=== PATIENT | male | born 1960 | race Two or more races ===

== ENCOUNTER → 2024-08-12 | Outpatient (CLI) | payer MEDICARE, SELFPAY ==
[2024-08-12 11:31] LABS: Quantiferon-TB* See Sep Rpt
[2024-08-12 11:46] LABS: Basophils # (Auto) 0.1 Thou/mm3 (0.0-0.2); Basophils % (Auto) 2 % (0-2.5); Eosinophils # (Auto) 0.2 Thou/mm3 (0.0-0.5); Eosinophils % (Auto) 3 % (0-10); Hematocrit 42.9 % (41.0-53.0); Hemoglobin 14.4 g/dL (13.5-16.0); Immature Granulocytes % (Auto) 0 % (0-0); Immature Granulocytes Auto 0.02 Thou/mm3 (0.00-0.00); Lymphocytes # (Auto) 1.9 Thou/mm3 (1.0-4.8); Lymphocytes % (Auto) 28 % (10-50); Mean Corpuscular HGB Conc 33.6 g/dl (31.0-37.0); Mean Corpuscular Hemoglobin 31.9 pg (25.0-35.0); Mean Corpuscular Volume 95 fL (80-100); Monocytes # (Auto) 0.5 Thou/mm3 (0.0-0.8); Monocytes % (Auto) 7 % (0-12); Neutrophils # (Auto) 4.1 Thou/mm3 (1.8-7.7); Neutrophils % (Auto) 60 % (37-80); Nucleated Red Blood Cell % 0 /100 WBC (0); Platelet Count 226 Thou/mm3 (140-440); RDW Standard Deviation 45.6 fL (35.1-43.9); Red Blood Count 4.52 Miln/mm3 (4.50-5.90); White Blood Count 6.9 Thou/mm3 (3.8-10.6)
[2024-08-12 11:56] LABS: Glucose Estimated Average 88 mg/dL (80-131); Hemoglobin A1C 4.7 % Hgb (4.8-6.0)
[2024-08-12 12:02] LABS: Sed Rate (ESR) 19 mm/hr (0-20)
[2024-08-12 12:06] LABS: Prostate Specific Antigen 3.02 ng/mL (0-4.00)
[2024-08-12 12:09] LABS: Collection Type, Urine Clean Catch; RBC,Urine 0 /hpf (0-3); Squamous Epithelial Cell,Urine 0 /hpf (0-5)
[2024-08-12 12:10] LABS: Vitamin B12 490 pg/mL (211-911); Vitamin D 25 Hydroxy Total 23.1 ng/mL (7.3-40.2)
[2024-08-12 12:17] LABS: Alanine Aminotransferase 11 U/L (10-49); Albumin, Serum 4.2 gm/dL (3.4-4.8); Albumin/Globulin Ratio 1.6 (1.2-2.2); Alkaline Phosphatase 51 U/L (46-116); Anion Gap 6 (7-16); Aspartate Amino Transferase 21 U/L (0-34); BUN/Creatinine Ratio 14 Ratio (12-20); Bilirubin,Total 0.7 mg/dL (0.3-1.2); Blood Urea Nitrogen 10 mg/dL (9-23); Carbon Dioxide 26.9 mMol/L (20.0-31.0); Cardiac Risk Estimate 2.5 RATIO (4.0-6.7); Chloride 108 mMol/L (98-107); Cholesterol 173 mg/dL (132-200); Creatinine (Component) 0.7 mg/dL (0.6-1.3); Globulin 2.7 gm/dL (2.3-3.5); Glucose 91 mg/dL (74-106); HDL Cholesterol 70 mg/dL (40-60); LDL Cholesterol,Calculated 92 mg/dL (0-130); Osmolality,Calculated 280 (275-295); Potassium 4.6 mMol/L (3.4-5.1); Sodium 141 mMol/L (136-145); Thyroid Stimulating Hormone 0.99 uIU/mL (0.55-4.78); Total Protein 6.9 gm/dL (5.7-8.2); Triglycerides 53 mg/dL (30-150); Uric Acid 3.7 mg/dL (3.7-9.2); eGFR > 60 See Note
[2024-08-12 12:27] LABS: Bilirubin,Urine Negative (Negative); Blood,Urine Trace (Negative); Clarity,Urine Clear (Clear/Hazy); Color,Urine Lt-Yellow (Lt Yel-Yel); Glucose, Urine Negative (Negative); Ketones,Urine Negative (Negative); Leukocyte Esterase,Urine Negative (Negative); Nitrite,Urine Negative (Negative); Protein,Urine Trace (Neg - Trace); Specific Gravity,Urine 1.017 (1.001-1.035); Urobilinogen,Urine Negative mg/dL (0.0-1.0); WBC,Urine < 1 /hpf (0-5)
[2024-08-12 13:14] LABS: Cocci Serology, IgM Negative (Negative)
[2024-08-13 13:20] LABS: Cocci Serology, IgG Negative (Negative)
== END | disposition home or self-care (01) ==
PROVIDERS: PCP Internal Medicine; Referring Provider Internal Medicine; Visit Provider Internal Medicine
DX: Z00.00 Encounter for general adult medical examination without abnormal findings (principal); M05.79 Rheumatoid arthritis with rheumatoid factor of multiple sites without organ or systems involvement; Z79.60 Long term (current) use of unspecified immunomodulators and immunosuppressants
CPT/HCPCS: 36415; 80053; 80061; 81001; 82306; 82607; 83036; 84153; 84443; 84550; 85025; 85652; 86331; 86480; 86635

== ENCOUNTER 2025-02-22 05:08 | Emergency (ER) | payer MEDICARE, SELFPAY ==
[2025-02-22 05:09] VITALS: BMI 26.6
--- NOTE | 2025-02-22 05:31 | XR_ITS ---
Examination: CT abdomen and pelvis without contrast. Coronal 3-D reconstructions. Sagittal 2-D reconstructions. Date and time of exam:February 22, 2025, 0623 hours, comparison February 08, 2024 INDICATIONS: Nausea vomiting abdominal pain beginning this morning CTDI: vol (mGy): 7.85 DLP: (mGycm): 432 Technique: Axial images of the abdomen have been obtained, 3 mm slice thickness Intravenous contrast material has not been administered. Low dose protocols were performed. One or more of the following dose reduction techniques were used; automated exposure control, adjustment of the mA and/or KV according to patient size, use of iterative reconstruction technique. Findings: No focal liver or splenic lesion No pancreatic mass Gallstones Mild perinephric stranding No renal or ureteral calculi, no hydronephrosis Aorta normal size Normal appendix No bowel obstruction Colonic diverticulosis Suspicious for minimal inflammatory change about the sigmoid diverticula Contracted urinary bladder. Normal seminal vesicles Transverse posterior dimension 4.9 cm Moderate degenerative disc disease L4-L5. IMPRESSION: Mild perinephric stranding, clinical correlation advised No renal or ureteral calculi, no hydronephrosis Normal appendix Suspicious for minimal sigmoid diverticulitis, the appearance should be clinically correlated
--- NOTE | 2025-02-22 05:31 | PD.EDRME ---
Rapid Medical Screening Exam RME Arrival date/time: 02/22/25 05:08 This is a case of 64-year-old male who came in in the emergency room due to left-sided abdominal pain with nausea vomiting persistence of the symptoms this patient decided to sought consult here in the emergency room Chief Complaint: Abdominal Pain
[2025-02-22 05:33] VITALS: BP 168/97; PULSE 63; RESP 18; TEMP 36.9; O2SAT 98
[2025-02-22] MEDS: ONDANSETRON INJ 2 MG/ML INJ 2 ML 4 MG IM (06:01)
[2025-02-22] MEDS: MORPHINE SULF INJ 10 MG/ML VIAL 5 MG IM (06:01)
[2025-02-22 06:10] LABS: Collection Type, Urine Clean Catch; Squamous Epithelial Cell,Urine 0 /hpf (0-5)
[2025-02-22 06:32] VITALS: BP 197/97; PULSE 55; RESP 20; TEMP 36.9; O2SAT 100
[2025-02-22 06:35] LABS: Bilirubin,Urine Negative (Negative); Blood,Urine 1+ (Negative); Clarity,Urine Clear (Clear/Hazy); Color,Urine Lt-Yellow (Lt Yel-Yel); Glucose, Urine Negative (Negative); Ketones,Urine 4+ (Negative); Leukocyte Esterase,Urine Negative (Negative); Nitrite,Urine Negative (Negative); PH,Urine 6.0 (5.0-7.0); Protein,Urine Trace (Neg - Trace); RBC,Urine 7 /hpf (0-3); Specific Gravity,Urine 1.023 (1.001-1.035); Urobilinogen,Urine Negative mg/dL (0.0-1.0); WBC,Urine 3 /hpf (0-5)
[2025-02-22 06:55] VITALS: BP 149/95; PULSE 63; RESP 19; TEMP 37; O2SAT 95
[2025-02-22 07:06] LABS: Basophils # (Auto) 0.1 Thou/mm3 (0.0-0.2); Basophils % (Auto) 1 % (0-2.5); Eosinophils # (Auto) 0.5 Thou/mm3 (0.0-0.5); Eosinophils % (Auto) 4 % (0-10); Hematocrit 43.9 % (41.0-53.0); Hemoglobin 14.9 g/dL (13.5-16.0); Immature Granulocytes Auto 0.04 Thou/mm3 (0.00-0.00); Lymphocytes # (Auto) 0.4 Thou/mm3 (1.0-4.8); Lymphocytes % (Auto) 3 % (10-50); Mean Corpuscular HGB Conc 33.9 g/dl (31.0-37.0); Mean Corpuscular Hemoglobin 32.6 pg (25.0-35.0); Mean Corpuscular Volume 96 fL (80-100); Monocytes # (Auto) 0.5 Thou/mm3 (0.0-0.8); Monocytes % (Auto) 4 % (0-12); Neutrophils # (Auto) 10.7 Thou/mm3 (1.8-7.7); Neutrophils % (Auto) 88 % (37-80); Nucleated Red Blood Cell # 0.00 Thou/mm3 (0.00-0.00); Nucleated Red Blood Cell % 0 /100 WBC (0); Platelet Count 231 Thou/mm3 (140-440); RDW Standard Deviation 45.3 fL (35.1-43.9); Red Blood Count 4.57 Miln/mm3 (4.50-5.90); White Blood Count 12.2 Thou/mm3 (3.8-10.6)
[2025-02-22 07:23] LABS: Alanine Aminotransferase 13 U/L (10-49); Albumin, Serum 4.7 gm/dL (3.4-4.8); Albumin/Globulin Ratio 1.3 (1.2-2.2); Alkaline Phosphatase 61 U/L (46-116); Anion Gap 12 (7-16); Aspartate Amino Transferase 29 U/L (0-34); BUN/Creatinine Ratio 15 Ratio (12-20); Bilirubin,Total 0.9 mg/dL (0.3-1.2); Blood Urea Nitrogen 12 mg/dL (9-23); Calcium 9.9 mg/dL (8.3-10.6); Calcium (Corrected) 9.9 mg/dL (8.5-10.1); Carbon Dioxide 21.2 mMol/L (20.0-31.0); Chloride 111 mMol/L (98-107); Creatinine (Component) 0.8 mg/dL (0.6-1.3); Estimated Creatinine Clearance 83.1 mL/min (>60); Globulin 3.6 gm/dL (2.3-3.5); Glucose 147 mg/dL (74-106); Osmolality,Calculated 289 (275-295); Potassium 4.2 mMol/L (3.4-5.1); Sodium 144 mMol/L (136-145); Total Protein 8.3 gm/dL (5.7-8.2); eGFR > 60 See Note
[2025-02-22 07:34] LABS: Lipase 21 U/L (12-53)
[2025-02-22 08:13] VITALS: BP 128/80; PULSE 70; RESP 18; TEMP 37; O2SAT 96
--- NOTE | 2025-02-22 08:17 | PD.EDABDPN ---
ED Abdominal Pain RME/HPI General Chief Complaint: Abdominal Pain Stated complaint: N/V ABD PAIN Time seen by provider: 02/22/25 05:32 Arrival date/time: 02/22/25 05:08 Source: patient Limitations: no limitations RME / HPI RME / HPI narrative: 02/22/25 05:08 This is a case of 64-year-old male who came in in the emergency room due to left-sided abdominal pain with nausea vomiting persistence of the symptoms this patient decided to sought consult here in the emergency room DR. AMY CARRANZA ED EVALUATION 64 year old male with history of rheumatoid arthritis, hypertension, diverticulitis presents to the ED for evaluation of abdominal pain that is located most to the left lower region that began yesterday. Described as nagging aching in sensation, rated as moderate. Accompanied by blood in stool also beginning yesterday. Noted the amount of blood in stool to be mild, denies any gross blood. Patient reports similar presentation several years ago and during that time had a colonoscopy showing diverticulitis. No other associated symptoms reported. Denies fevers, chills, chest pain, cough, shortness of breath, or urinary symptoms. No repeat colonoscopies performed since. Related Data Home Medications ?Medication ?Instructions ?Recorded ?Confirmed celecoxib 200 mg capsule 200 mg PO BID 03/21/23 03/21/23 hydroxychloroquine 200 mg tablet 400 mg PO QDAY 03/21/23 03/21/23 (Plaquenil) Previous Rx's ?Medication ?Instructions ?Recorded aspirin 81 mg tablet,delayed 81 mg PO DAILY #1 tab 03/22/23 release meclizine 25 mg tablet 25 mg PO Q6HR PRN Dizziness #30 03/22/23 tabs sertraline 25 mg tablet 50 mg (2 x 25 mg) PO HS #30 tabs 03/22/23 ciprofloxacin HCl 500 mg tablet 500 mg PO BID #14 tabs 02/08/24 (Cipro) dicyclomine 20 mg tablet 20 mg PO BID #20 tabs 02/08/24 ondansetron 4 mg disintegrating 4 mg PO Q8H #14 tabs 02/08/24 tablet amoxicillin 875 mg-potassium 1 tab PO Q12H #10 tabs 02/22/25 clavulanate 125 mg tablet Allergies Allergy/AdvReac Type Severity Reaction Status Date / Time No Known Allergies Allergy Verified 02/22/25 05:11 Review of Systems Review of Systems Systems Reviewed: All systems reviewed, normal except as documented Past Medical History Past Medical History CARDIAC: Negative Congestive Heart Failure RESPIRATORY: Negative Chronic Obstructive Pulmonary Disease (COPD) GASTROINTESTINAL: Positive Diverticulitis GENITOURINARY: Negative Renal Disease MUSCULOSKELETAL: Positive Arthritis ENDOCRINE: Negative Diabetes Mellitus Type 1 or Diabetes Mellitus Type 2 Surgical History SURGICAL: Positive Knee Sx (LEFT KNEE) Social History SMOKING STATUS: Never smoker ED Exam General Limitations: Present no limitations General appearance: Present alert and in no apparent distress Head Head exam: Present atraumatic, normocephalic and normal inspection Eye Eye exam: Present normal appearance and EOMI ENT ENT exam: Present normal exam, normal oropharynx and mucous membranes moist Neck Neck exam: Present normal inspection, full ROM and trachea midline Chest Chest inspection: Present normal inspection and symmetric chest wall rise Respiratory Respiratory exam: Present normal lung sounds bilaterally Cardiovascular Cardiovascular exam: Present regular rate, normal rhythm and normal heart sounds Abdominal Exam Abdominal exam: Present soft, tenderness (to the left lower quadrant ) and normal bowel sounds Extremities Exam Extremities exam: Present normal inspection and full ROM Back Exam Back exam: Present normal inspection and full ROM Neurological Exam Neurological exam: Present alert, oriented X3 and CN II-XII intact Psychiatric Psychiatric exam: Present normal affect and normal mood Skin Skin exam: Present warm, dry, intact and normal color Course Quality Measures none Orders Category Date Time Status CT abdomen pelvis wo con Stat Exams 02/22/25 05:31 Completed CBC Stat Lab 02/22/25 06:42 Completed Comprehensive Metabolic Panel Stat Lab 02/22/25 06:42 Completed Lipase Stat Lab 02/22/25 06:42 Completed Urinalysis Stat Lab 02/22/25 06:01 Completed Ciprofloxacin HCl [Ciprofloxacin] Med 02/22/25 08:26 Discontinued 500 mg PO X1 ONE Morphine Inj Med 02/22/25 05:40 Discontinued 5 mg IM X1 ONE Ondansetron Inj [Zofran Inj] Med 02/22/25 05:40 Discontinued 4 mg IM X1 ONE cefTRIAXone/D5w 1gm IV premix [Rocephin/D5w 1gm IV Med 02/22/25 08:29 Active premix] 1 gm in 50 ml IV STAT metroNIDAZOLE/NS 500 MG IVPB [Flagyl 500 mg IV] Med 02/22/25 08:25 Active 500 mg in 100 ml IV STAT Vital Signs Vital signs: Vital Signs Temperature 98.4 F 02/22/25 05:33 Pulse Rate 63 02/22/25 05:33 Respiratory Rate 18 02/22/25 05:33 Blood Pressure 168/97 H 02/22/25 05:33 Pulse Oximetry (%) 98 02/22/25 05:33 Oxygen Delivery Method Room Air 02/22/25 05:33 Pulse ox is 98% on room air which is adequate. Abdominal Pain MDM MDM Narrative MDM Narrative:: Patient is a 64-year-old male is in the emergency room and concerns for abdominal pain. Vital signs and exam as listed. Concern for diverticulitis, urinary tract infection, pancreatitis. Among others. Prior provider evaluated patient and ordered labs and CT without contrast. Labs with evidence of leukocytosis 12.2, left shift of 88%, hemoglobin 14.9. No significant electrolyte abnormality, chloride 111, creatinine normal, no transaminitis. Urinalysis with 7 RBCs 3 white blood cells no bacteria leuk esterase negative nitrate negative. CT abdomen pelvis with mild perinephric fat stranding, and findings suspicious for early sigmoid diverticulitis. Patient denies dysuria or hematuria. Given history and exam we will treat for diverticulitis. Patient is hemodynamically stable, not in distress will discharge to home with close return precautions and primary care doctor. Symptoms improved. Will discharge symptoms improved. 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 for his episodes of bright red blood per rectum Patient data External records reviewed:: [facility] previous records (I reviewed ED visit on 02/08/2024 ) Clinical information provided by:: patient Social determinants that could affect healthcare access:: none Patient has the following chronic illnesses:: rheumatoid arthritis, hypertension, diverticulitis How is presenting disease/condition affected by chronic disease/condition?: exacerbated by Evaluation data The following diagnostics were reviewed and interpreted by me:: lab results and radiology exam(s) Lab and/or radiology exams considered but not ordered:: None Interpretation Summary: Ordering Physician: Gema Boucher Date of Service: 02/22/25 Procedure(s): CT abdomen pelvis wo con Accession Number(s): [id number] cc: Juan Manuel Maki MD; Gema Boucher; Julito Olmstead MD~ Examination: CT abdomen and pelvis without contrast. Coronal 3-D reconstructions. Sagittal 2-D reconstructions. Date and time of exam:February 22, 2025, 0623 hours, comparison February 08, 2024 INDICATIONS: Nausea vomiting abdominal pain beginning this morning CTDI: vol (mGy): 7.85 DLP: (mGycm): 432 Technique: Axial images of the abdomen have been obtained, 3 mm slice thickness Intravenous contrast material has not been administered. Low dose protocols were performed. One or more of the following dose reduction techniques were used; automated exposure control, adjustment of the mA and/or KV according to patient size, use of iterative reconstruction technique. Findings: No focal liver or splenic lesion No pancreatic mass Gallstones Mild perinephric stranding No renal or ureteral calculi, no hydronephrosis Aorta normal size Normal appendix No bowel obstruction Colonic diverticulosis Suspicious for minimal inflammatory change about the sigmoid diverticula Contracted urinary bladder. Normal seminal vesicles Transverse posterior dimension 4.9 cm Moderate degenerative disc disease L4-L5. IMPRESSION: Mild perinephric stranding, clinical correlation advised No renal or ureteral calculi, no hydronephrosis Normal appendix Suspicious for minimal sigmoid diverticulitis, the appearance should be clinically correlated Dictated By: Juan Manuel Maki MD Signed By: <Electronically signed by Juan Manuel Maki MD in OV> 02/22/25 0747 Medications / Prescriptions Medications or Prescriptions considered but not ordered:: None Medication administrations:: Medication Administration History Metronidazole (Flagyl 500 Mg Iv) 500 mg in 100 mls @ 200 mls/hr IV STAT STA Stop: 02/22/25 08:54 Ceftriaxone Sodium/Dextrose (Rocephin/D5w 1gm Iv Premix) 1 gm in 50 mls @ 100 mls/hr IV STAT STA Stop: 02/22/25 08:58 Discontinued Medications Ciprofloxacin (Ciprofloxacin Hcl 250 Mg Tablet) 500 mg PO X1 ONE Stop: 02/22/25 08:27 Morphine Sulfate (Morphine Sulf Inj 10 Mg/Ml Vial) 5 mg IM X1 ONE Stop: 02/22/25 05:41 Last Admin: 02/22/25 06:01 Dose: 5 mg Documented By: NEFTALI Ondansetron HCl (Ondansetron Inj 2 Mg/Ml Inj 2 Ml) 4 mg IM X1 ONE; Protocol Stop: 02/22/25 05:41 Last Admin: 02/22/25 06:01 Dose: 4 mg Documented By: NEFTALI Comments: MEDICATION ORDER See above Consultations Consultation(s) initiated? (list below): No Diagnosis Differential diagnosis abdominal pain: abdominal pain, diverticulitis and other (hemorrhoids, GI bleed ) Most likely diagnosis given after review of the tests above:: Diverticulitis diverticulitis Admission Indicated Admission indicated?: not indicated Admission Request Was there a request for admission?: No Disposition Plan Disposition Plan: Discharge Discharge Attestation Discharge Attestation: The patient and all family members were given an opportunity to ask questions and understood the discharge instructions. Discharge instructions specifically effects, indications for sooner follow up or return to the emergency department, and the expected course of current diagnosis. Patient condition: Stable Discharge Plan Plan Patient Disposition: HOME (Self Care) Prescriptions/Referrals Prescriptions/Med Rec: New amoxicillin-pot clavulanate 875-125 mg tablet 1 tab PO Q12H Qty: 10 0RF No Action celecoxib 200 mg Capsule 200 mg PO BID Rx Instructions: Take 1 200 mg capsule by mouth twice a day for 90 days hydroxychloroquine [Plaquenil] 200 mg Tablet 400 mg PO QDAY Rx Instructions: Take 2, 200 mg tabs by mouth every day aspirin 81 mg Tablet,Delayed Release (Dr/Ec) 81 mg PO DAILY Qty: 1 0RF meclizine 25 mg Tablet 25 mg PO Q6HR PRN (Reason: Dizziness) Qty: 30 0RF sertraline 25 mg Tablet 50 mg PO HS Qty: 30 0RF ciprofloxacin HCl [Cipro] 500 mg tablet 500 mg PO BID Qty: 14 0RF dicyclomine 20 mg tablet 20 mg PO BID Qty: 20 0RF ondansetron 4 mg tablet,disintegrating 4 mg PO Q8H Qty: 14 0RF Referrals: Julito Olmstead MD [Primary Care Provider] - In 1 week Problem List Clinical Impression: Diverticulitis Impression comment: Please follow-up with your primary care doctor within the next 1 to 2 days. Please take antibiotics as prescribed. We have prescribed you Augmentin every 12 x 5 days given that you are also taking hydroxychloroquine and so we chose these medications based on avoiding QT prolonging medication. I also recommend that you see a journeyman carpenter for further evaluation of blood in your stool. Return to emergency department immediately if you have worsening symptoms or symptom concern Patient/Caregiver Discharge Instructions Print Language: Estonian Stand Alone Forms: Ingrid Award Info., Patient Portal Info Letter
[2025-02-22] MEDS: metroNIDAZOLE/NS 500 MG IVPB 500 MG/100 ML BAG 200 MG IV (08:34)
[2025-02-22] MEDS: cefTRIAXone/D5w 1gm IV premix 1 GM/50 ML BAG IV (09:10)
[2025-02-22 10:18] VITALS: BP 126/89; PULSE 83; RESP 19; TEMP 37.1; O2SAT 98
== END 2025-02-22 10:19 | disposition home or self-care (01) ==
PROVIDERS: Nurse Practitioner Family; Emergency Provider Emergency Medicine; PCP Internal Medicine
DX: K57.33 Diverticulitis of large intestine without perforation or abscess with bleeding (principal)
CPT/HCPCS: 36415; 74176; 80053; 81001; 83690; 85025; 96365; 96372; 99284; J0696; J2270; J2405; J3490; J1836

== ENCOUNTER 2025-03-25 15:40 | Emergency (ER) | payer MEDICARE, SELFPAY ==
[2025-03-25 16:11] VITALS: BP 150/97; PULSE 69; RESP 17; TEMP 37.3; O2SAT 98; BMI 25.0
--- NOTE | 2025-03-25 16:17 | XR_ITS ---
Examination: Ribs, right, with PA chest, 5 views Technique: Chest PA, RIBS AP, RPO, LPO, AP coned lower ribs 5 views Exam date and time: March 25, 2025 1620 hrs. Indications: Patient fell today with injury to the right chest, right rib pain Findings: Normal heart size No pneumothorax Old appearing deformity right clavicle, clinical correlation advised Acute appearing nondisplaced fractures right fourth fifth and sixth ribs anteriorly Impression: No pneumothorax pulmonary contusion or hemothorax Acute appearing fractures right fourth, fifth, sixth ribs anteriorly
[2025-03-25] MEDS: HYDROcodone/APAP 5/325 TABLET 1 TAB PO (16:32)
--- NOTE | 2025-03-25 17:48 | PD.EDRME ---
Rapid Medical Screening Exam [facility] Arrival date/time: 03/25/25 15:40 65-year-old male with no known medical history presents to the emergency room with a chief complaint of tenderness and pain to his right rib cage and difficulty breathing x 1 day. Patient had a ground-level fall last Friday. I have greeted and performed a focused initial assessment of this patient. A comprehensive ED assessment and evaluation of the patient, analysis of all test results, and completion of the medical decision making process will be conducted by additional ED providers. Chief Complaint: Fall Time Seen by Provider: 03/25/25 15:53 Vital signs: Vital Signs Temperature 99.2 F 03/25/25 16:11 Pulse Rate 69 03/25/25 16:11 Respiratory Rate 17 03/25/25 16:11 Blood Pressure 150/97 H 03/25/25 16:11 Pulse Oximetry (%) 98 03/25/25 16:11 Oxygen Delivery Method Room Air 03/25/25 16:11 Vital signs reviewed by provider: Yes
--- NOTE | 2025-03-25 19:08 | PD.EDFALL ---
ED Fall Injury RME/HPI General Chief Complaint: Fall Stated Complaint: Fall, last Friday, rib pain, SOB Time Seen by Provider: 03/25/25 15:53 Arrival date/time: 03/25/25 15:40 RME / HPI RME / HPI Narrative: 03/25/25 15:40 65-year-old male with no known medical history presents to the emergency room with a chief complaint of tenderness and pain to his right rib cage and difficulty breathing x 1 day. Patient had a ground-level fall last Friday. I have greeted and performed a focused initial assessment of this patient. A comprehensive ED assessment and evaluation of the patient, analysis of all test results, and completion of the medical decision making process will be conducted by additional ED providers. Dr. Short?s Main ED Evaluation: 65yo male who suffered a ground-level fall 1 week [employer] striking his right posterior thorax with persistent posterior lateral chest pain increasing with deep inspiration. No reported fever, chills, or SOB. Pain worsens with flexion and rotation of the torso. PMH includes RA (on immunomodulators). PSH unremarkable. Social history includes occasional alcohol use, no tobacco or illicit drug use. NKA. Related Data Home Medications ?Medication ?Instructions ?Recorded ?Confirmed celecoxib 200 mg capsule 200 mg PO BID 03/21/23 03/21/23 hydroxychloroquine 200 mg tablet 400 mg PO QDAY 03/21/23 03/21/23 (Plaquenil) Previous Rx's ?Medication ?Instructions ?Recorded aspirin 81 mg tablet,delayed 81 mg PO DAILY #1 tab 03/22/23 release meclizine 25 mg tablet 25 mg PO Q6HR PRN Dizziness #30 03/22/23 tabs sertraline 25 mg tablet 50 mg (2 x 25 mg) PO HS #30 tabs 03/22/23 ciprofloxacin HCl 500 mg tablet 500 mg PO BID #14 tabs 02/08/24 (Cipro) dicyclomine 20 mg tablet 20 mg PO BID #20 tabs 02/08/24 ondansetron 4 mg disintegrating 4 mg PO Q8H #14 tabs 02/08/24 tablet amoxicillin 875 mg-potassium 1 tab PO Q12H #10 tabs 02/22/25 clavulanate 125 mg tablet lidocaine 5 % topical patch 1 patch topical QDAY rib fx #30 ea 03/25/25 oxycodone-acetaminophen 5 mg-325 1 tab PO Q6H PRN pain #20 tabs 03/25/25 mg tablet (Percocet) Allergies Allergy/AdvReac Type Severity Reaction Status Date / Time No Known Allergies Allergy Verified 03/25/25 15:45 Review of Systems Review of Systems Systems Reviewed: All systems reviewed, normal except as documented Past Medical History Past Medical History CARDIAC: Negative Congestive Heart Failure RESPIRATORY: Negative Chronic Obstructive Pulmonary Disease (COPD) GASTROINTESTINAL: Positive Diverticulitis GENITOURINARY: Negative Renal Disease MUSCULOSKELETAL: Positive Arthritis ENDOCRINE: Negative Diabetes Mellitus Type 1 or Diabetes Mellitus Type 2 Social History SMOKING STATUS: Never smoker ED Exam Narrative Physical exam: GENERAL APPEARANCE: alert and oriented x 4, well-developed, well-nourished, is splinting secondary to posterior lateral chest wall pain VITALS: All vitals were reviewed and the pulse ox is 98% on room air, which is normal according to my interpretation. HEENT: Normocephalic, atraumatic; pupils equal, round, reactive to light; EOMI; mucous membranes pink, moist; oropharynx clear NECK: Supple LUNGS: CTABL; decreased excursion secondary to pain, no wheezes, no rales, no rhonchi CHEST: Exquisite tenderness to the right lateral posterior thorax at the posterior axillary line with noted step-off, but no crepitus HEART: Regular rate, regular rhythm; normal S1, S2; no murmurs ABDOMEN: non distended; normal BS; soft, no tenderness, no guarding, no rebound EXTREMITIES: atraumatic; no edema NEUROLOGIC: awake; alert and oriented x4; cranial nerves II-XII grossly intact; no focal sensory or motor deficits PSYCHIATRIC: appropriate mood and affect SKIN: warm, dry, normal color; no rashes Course Quality Measures none Orders Category Date Time Status Incentive Spirometry Treatment .q2h w/a Care 03/25/25 19:30 Active XR ribs RT min 3V w CXR1V Stat Exams 03/25/25 16:17 Completed HYDROcodone*/APAP 5/325 [[employer] [place] 5/325] Med 03/25/25 16:17 Discontinued 1 tab PO X1 ONE Lidocaine 5% Patch Med 03/25/25 19:19 Discontinued 1 patch TOP X1 ONE Vital Signs Vital signs: Vital Signs Temperature 99.2 F 03/25/25 16:11 Pulse Rate 69 03/25/25 16:11 Respiratory Rate 17 03/25/25 16:11 Blood Pressure 150/97 H 03/25/25 16:11 Pulse Oximetry (%) 98 03/25/25 16:11 Oxygen Delivery Method Room Air 03/25/25 16:11 Fall MDM Narrative MDM Narrative:: Scribe Attestation: 03/25/25 - Dayan Carter am scribing for and in the presence of Dr. Short. 65yo male who suffered a ground-level fall 1 week [employer] striking his right posterior thorax with persistent posterior lateral chest pain increasing with deep inspiration. No reported fever, chills, or SOB. Please see PE findings. Routine x-rays demonstrated nondisplaced fractures of the right 4th-6th ribs. Patient treated with PO narcotic analgesics in addition to topical lidocaine patch, and right arm was placed in a sling to minimal right shoulder girdle movement. Patient considered stable for discharge. Will prescribe Percocet and lidocatine patches, along with issuing an incentive spirometer. Patient notes he has a sling he will wear at home. Close follow-up with PMD recommended. Precaution instructions issued. Patient data External records reviewed:: [facility] previous records (Per chart review, patient was seen here on 02/22/25 for diverticulitis.) Clinical information provided by:: patient Social determinants that could affect healthcare access:: none Patient has the following chronic illnesses:: none How is presenting disease/condition affected by chronic disease/condition?: no chronic disease Evaluation data The following diagnostics were reviewed and interpreted by me:: radiology exam(s) Lab and/or radiology exams considered but not ordered:: none Interpretation Summary: [facility] Report Signed Patient: NOMI BENJAMIN [facility]. Record#: [id number] Birthdate: 1960 Age/Sex: 65 / M Location: [facility] Attending Dr: Ordering Physician: Lenonx Gtz Date of Service: 03/25/25 Procedure(s): XR ribs RT min 3V w CXR1V Accession Number(s): [id number] cc: Lennox Gtz; Juan Manuel Maki MD; Julito Olmstead MD~ Examination: Ribs, right, with PA chest, 5 views Technique: Chest PA, RIBS AP, RPO, LPO, AP coned lower ribs 5 views Exam date and time: March 25, 2025 1620 hrs. Indications: Patient fell today with injury to the right chest, right rib pain Findings: Normal heart size No pneumothorax Old appearing deformity right clavicle, clinical correlation advised Acute appearing nondisplaced fractures right fourth fifth and sixth ribs anteriorly Impression: No pneumothorax pulmonary contusion or hemothorax Acute appearing fractures right fourth, fifth, sixth ribs anteriorly Dictated By: Juan Manuel Maki MD Signed By: <Electronically signed by Juan Manuel Maki MD in [place]> 03/25/25 1736 Medications / Prescriptions Medications or Prescriptions considered but not ordered:: none Medication administrations:: Medication Administration History Discontinued Medications Hydrocodone Bitart/Acetaminophen (Hydrocodone/Apap 5/325 Tablet) 1 tab PO X1 ONE Stop: 03/25/25 16:18 Last Admin: 03/25/25 16:32 Dose: 1 tab Documented By: Lidocaine (Lidocaine 5% 1 Patch) 1 patch TOP X1 ONE Stop: 03/25/25 19:20 see above Consultations Consultation(s) initiated? (list below): No Diagnosis Fall Differential Diagnosis: other (rib fracture, rib contusion, pneumothorax) Most likely diagnosis given after review of the tests above:: see clinical impression below Admission Indicated Admission indicated?: not indicated Admission Request Was there a request for admission?: No Disposition Plan Disposition Plan: Discharge Discharge Attestation Discharge Attestation: The patient and all family members were given an opportunity to ask questions and understood the discharge instructions. Discharge instructions specifically effects, indications for sooner follow up or return to the emergency department, and the expected course of current diagnosis. Patient condition: Stable Discharge Plan Plan Patient Disposition: HOME (Self Care) Discharge Disposition comment: Stable Prescriptions/Referrals Prescriptions/Med Rec: New oxycodone-acetaminophen [Percocet] 5-325 mg tablet 1 tab PO Q6H MDD 4 tabs PRN (Reason: pain) Qty: 20 0RF lidocaine 5 % adhesive patch,medicated 1 patch topical QDAY MDD 2 patches Qty: 30 0RF Rx Instructions: leave on most painful area for up to 12 hrs No Action celecoxib 200 mg Capsule 200 mg PO BID Rx Instructions: Take 1 200 mg capsule by mouth twice a day for 90 days hydroxychloroquine [Plaquenil] 200 mg Tablet 400 mg PO QDAY Rx Instructions: Take 2, 200 mg tabs by mouth every day aspirin 81 mg Tablet,Delayed Release (Dr/Ec) 81 mg PO DAILY Qty: 1 0RF meclizine 25 mg Tablet 25 mg PO Q6HR PRN (Reason: Dizziness) Qty: 30 0RF sertraline 25 mg Tablet 50 mg PO HS Qty: 30 0RF ciprofloxacin HCl [Cipro] 500 mg tablet 500 mg PO BID Qty: 14 0RF dicyclomine 20 mg tablet 20 mg PO BID Qty: 20 0RF ondansetron 4 mg tablet,disintegrating 4 mg PO Q8H Qty: 14 0RF amoxicillin-pot clavulanate 875-125 mg tablet 1 tab PO Q12H Qty: 10 0RF Referrals: Julito Olmstead MD [Primary Care Provider, Nephrology] - In 1 week Problem List Clinical Impression: Closed fracture of rib(s), unspecified Patient/Caregiver Discharge Instructions Discharge Activity: activity as tolerated Other Activity Instructions:: Avoid any strenuous activity. Wear right arm sling when up and about. Education Materials: ED Rib Fracture Additional Instructions: Ice compresses, avoid strenuous activity. Medication as directed. Follow-up with primary care doctor in 7 to 10 days return if worsening. Incentive spirometer as directed Print Language: Croatian Stand Alone Forms: Ingrid Award Info., Patient Portal Info Letter
[2025-03-25] MEDS: LIDOCAINE 5% 1 PATCH TOP (19:38)
== END 2025-03-25 19:47 | disposition home or self-care (01) ==
PROVIDERS: Emergency Provider Emergency Medicine; PCP Internal Medicine
DX: S22.41XA Multiple fractures of ribs, right side, initial encounter for closed fracture (principal); W18.30XA Fall on same level, unspecified, initial encounter
CPT/HCPCS: 71101; 99284; J3490; A9270

== ENCOUNTER → 2025-04-12 | Outpatient (CLI) | payer MEDICARE, SELFPAY ==
[2025-04-12 10:25] LABS: Basophils # (Auto) 0.1 Thou/mm3 (0.0-0.2); Basophils % (Auto) 1 % (0-2.5); Eosinophils # (Auto) 0.2 Thou/mm3 (0.0-0.5); Eosinophils % (Auto) 3 % (0-10); Hematocrit 44.1 % (41.0-53.0); Hemoglobin 14.5 g/dL (13.5-16.0); Immature Granulocytes Auto 0.03 Thou/mm3 (0.00-0.00); Lymphocytes # (Auto) 2.2 Thou/mm3 (1.0-4.8); Lymphocytes % (Auto) 33 % (10-50); Mean Corpuscular HGB Conc 32.9 g/dl (31.0-37.0); Mean Corpuscular Hemoglobin 31.8 pg (25.0-35.0); Mean Corpuscular Volume 97 fL (80-100); Monocytes # (Auto) 0.6 Thou/mm3 (0.0-0.8); Monocytes % (Auto) 8 % (0-12); Neutrophils # (Auto) 3.8 Thou/mm3 (1.8-7.7); Neutrophils % (Auto) 55 % (37-80); Nucleated Red Blood Cell # 0.00 Thou/mm3 (0.00-0.00); Nucleated Red Blood Cell % 0 /100 WBC (0); Platelet Count 247 Thou/mm3 (140-440); RDW Standard Deviation 43.9 fL (35.1-43.9); Red Blood Count 4.56 Miln/mm3 (4.50-5.90); White Blood Count 6.9 Thou/mm3 (3.8-10.6)
[2025-04-12 10:37] LABS: Albumin, Serum 4.2 gm/dL (3.4-4.8); Anion Gap 5 (7-16); BUN/Creatinine Ratio 8 Ratio (12-20); Blood Urea Nitrogen 6 mg/dL (9-23); Calcium 8.8 mg/dL (8.3-10.6); Calcium (Corrected) 8.8 mg/dL (8.5-10.1); Carbon Dioxide 26.1 mMol/L (20.0-31.0); Chloride 107 mMol/L (98-107); Creatinine (Component) 0.8 mg/dL (0.6-1.3); Glucose 90 mg/dL (74-106); Osmolality,Calculated 273 (275-295); Phosphorous 3.8 mg/dL (2.4-5.1); Potassium 4.9 mMol/L (3.4-5.1); Sodium 138 mMol/L (136-145); eGFR > 60 See Note
== END | disposition home or self-care (01) ==
LOC: COPL 09:51
PROVIDERS: PCP Internal Medicine; Referring Provider Internal Medicine; Visit Provider Internal Medicine
DX: M06.9 Rheumatoid arthritis, unspecified (principal); H93.19 Tinnitus, unspecified ear; M10.00 Idiopathic gout, unspecified site
CPT/HCPCS: 36415; 80069; 85025